=== PATIENT | female | born 1950 | race Caucasian/White ===

== ENCOUNTER 2022-04-28 09:24 | Emergency (ER) | payer MEDICARE, MEDICAID ==
[2022-04-28] MEDS ORDERED: Sodium Chloride 0.9% 10 ML Syringe FLUSH PRN (09:38)
[2022-04-28] MEDS ORDERED: Lactated Ringers 1,000 ML IV ONE (09:41)
[2022-04-28 10:03] LABS: PTT,PARTIAL THROMBOPLSTIN TIME 24.7 SEC (20.5-30.9)
[2022-04-28 10:14] LABS: ANION GAP 22.4 mmol/L (5-15); CHLORIDE,CL 100 mmol/L (98-107); ESTIMATED GFR > 60; SODIUM,NA 140 mmol/L (136-145)
[2022-04-28] MEDS ORDERED: cefTRIAXone 2 GM Vial IVPUSH ONE (11:13)
[2022-04-28 11:22] LABS: CORONAVIRUS COVID-19 NAA NEGATIVE (NEGATIVE); RESPIRATORY SYNCYTIAL VIR NAA NEGATIVE (NEGATIVE)
== END 2022-04-28 13:35 ==
LOC: VM.ED 09:24
DX: J18.9 Pneumonia, unspecified organism (principal); E86.0 Dehydration; Z88.8 Allergy status to other drugs, medicaments and biological substances; Z20.822 Contact with and (suspected) exposure to COVID-19
CPT/HCPCS: 0241U; 36415; 71045; 80053; 83605; 83735; 84100; 84484; 85025; 85610; 85730; 86140; 93005; 96361; 96374; 99285; J0696; J7120; 93010

== ENCOUNTER 2023-01-17 12:02 | Day surgery (SDC) | payer MEDICARE, MEDICAID ==
[~2023-01-17 12:02] MED LIST: Lactated Ringers 1,000 ML IV SCH; Sodium Chloride 0.9% 10 ML Syringe FLUSH PRN
[2023-01-17] MEDS ORDERED: Propofol 200 MG/20 ML SDV ONE (12:45)
[2023-01-17] MEDS ORDERED: fentaNYL 100 MCG/2 ML SDV ONE (12:46)
== END 2023-01-17 16:00 ==
LOC: VM.SDS 12:02
PROVIDERS: ATTEND Family Medicine
DX: D12.6 Benign neoplasm of colon, unspecified (principal); K64.8 Other hemorrhoids; E03.9 Hypothyroidism, unspecified; M81.0 Age-related osteoporosis without current pathological fracture; E56.0 Deficiency of vitamin E; F31.9 Bipolar disorder, unspecified; K31.84 Gastroparesis; Z88.8 Allergy status to other drugs, medicaments and biological substances; Z98.890 Other specified postprocedural states; Z79.899 Other long term (current) drug therapy; Z79.890 Hormone replacement therapy; Z91.048 Other nonmedicinal substance allergy status
CPT/HCPCS: 00811; 88305; J2704; J3010; J7120

== ENCOUNTER 2024-04-10 22:49 | Emergency (ER) | payer MEDICARE, MEDICAID ==
[2024-04-10] MEDS: Erythromycin Base 0.5% Ophth Oint 3.5 GM Tube EYEBOTH ONE (23:17)
== END 2024-04-10 23:45 | disposition home or self-care (01) ==
LOC: VM.ED 22:49
DX: L23.9 Allergic contact dermatitis, unspecified cause (principal); Z90.49 Acquired absence of other specified parts of digestive tract; Z79.899 Other long term (current) drug therapy; Z91.018 Allergy to other foods; Z88.8 Allergy status to other drugs, medicaments and biological substances
CPT/HCPCS: 99284; A9270

== ENCOUNTER 2025-06-19 02:16 | Emergency (ER) | payer MEDICARE, MEDICAID ==
[2025-06-19 02:56] LABS: BASOPHILS ABSOLUTE AUTO 0.0 x10^3/uL (0.0-0.2); BASOPHILS PERCENT AUTO 0.3 % (0.2-1.2); EOSINOPHILS ABSOLUTE AUTO 0.1 x10^3/uL (0.0-0.5); EOSINOPHILS PERCENT AUTO 2.9 % (0.0-4.0); IMMATURE GRAN ABSOLUTE AUTO 0.00 x10^3/uL (0.00-0.07); IMMATURE GRAN PERCENT AUTO 0.00 % (0.00-0.43); LYMPHOCYTES ABSOLUTE AUTO 1.4 x10^3/uL (1.0-4.8); LYMPHOCYTES PERCENT AUTO 37.5 % (25.0-50.0); MONOCYTES ABSOLUTE AUTO 0.2 x10^3/uL (0.0-0.8); MONOCYTES PERCENT AUTO 5.9 % (2.0-11.0); NEUTROPHILS ABSOLUTE AUTO 2.0 x10^3/uL (1.8-7.7); NEUTROPHILS PERCENT AUTO 53.4 % (50.0-80.0); PLATELET COUNT,PLT 132 x10^3/uL (130-400); RED BLOOD CELL COUNT 3.81 x10^6/uL (4.00-5.50); WHITE BLOOD CELL COUNT,WBC 3.7 x10^3/uL (4.0-10.0)
[2025-06-19 03:14] LABS: A/G RATIO 1.19; ALANINE AMINOTRANSFERASE,ALT 66.0 U/L (14-59); ASPARTATE AMNIOTRANSFERASE,AST 33.0 U/L (15-37); BILIRUBIN TOTAL 1.1 mg/dL (0.2-1.0); BLOOD UREA NITROGEN,BUN 19.0 mg/dL (7-18); CARBON DIOXIDE,CO2 22.0 mmol/L (21-32); CHLORIDE,CL 105.0 mmol/L (98-107); CREATININE 0.8 mg/dL (0.55-1.02); EST CRCL DRUG DOSING (CG) 45.66 mL/min; GLUCOSE RANDOM 140.0 mg/dL (70-99); POTASSIUM,K 3.9 mmol/L (3.5-5.1); PROTEIN TOTAL,TP 6.8 g/dL (6.4-8.2); SODIUM,NA 142.0 mmol/L (136-145)
[2025-06-19 03:15] LABS: ESTIMATED GFR 78.0 mL/min (>=60)
== END 2025-06-19 03:35 ==
LOC: SUPCPDRO 02:16 → VM.ED 02:16
DX: R41.82 Altered mental status, unspecified (principal); R05.9 Cough, unspecified; Z79.899 Other long term (current) drug therapy; Z88.8 Allergy status to other drugs, medicaments and biological substances; Z91.048 Other nonmedicinal substance allergy status; Z91.018 Allergy to other foods
CPT/HCPCS: 36415; 71045; 80053; 84484; 85025; 99284; 99285; A9270-GY